=== PATIENT | female | born 1970 | race Caucasian/White ===

== ENCOUNTER → 2017-08-31 12:07 | Outpatient (CLI) | payer BC ==
[~2017-08-31 12:07] MED LIST: IBUPROFEN400 MG PO; KLONOPIN1 MG PO; SYNTHROID75 MCG PO; TYLENOL #4 W/CO1 TAB PO
== END | disposition home or self-care (01) ==
LOC: D.MRI 12:07
DX: M79.671 Pain in right foot (principal)

== ENCOUNTER → 2017-12-01 16:41 | Outpatient (CLI) | payer BC | END | disposition home or self-care (01) | LOC: D.MAMMO 10:30 | DX: Z12.31 Encounter for screening mammogram for malignant neoplasm of breast (principal) ==

== ENCOUNTER → 2017-12-22 19:05 | Outpatient (CLI) | payer BC | END | disposition home or self-care (01) | LOC: D.MAMMO 12-20 15:00 → D.US 12-20 15:30 → D.MAMMO 13:30 | DX: R92.8 Other abnormal and inconclusive findings on diagnostic imaging of breast (principal) ==

== ENCOUNTER 2018-05-12 16:31 | Emergency (ER) | payer BC ==
[~2018-05-12] VITALS: Ht 162.6 cm; Wt 80.0 kg
[2018-05-12 16:34] VITALS: BP 138/98; Ht 162.6 cm; Wt 80.0 kg
[2018-05-12] MEDS ORDERED: FUROSEMIDE20 MG PO (16:36)
[2018-05-12 17:01] LABS: HEMATOCRIT 40.8 % (36.0-48.0); HEMOGLOBIN 14.3 g/dL (12-16); LYMPHOCYTES 27.6 % (15-50); MCH 29.7 pg (26.0-34.0); MCV 84.6 fL (80.0-100.0); MEAN PLATELET VOLUME 10.6 fL (7.4-10.4); NEUTROPHILS 63.5 % (40-80); PLATELET COUNT 264 10x3/uL (130-400); RBC 4.82 10x6/uL (4.00-5.40); WBC 9.8 10x3/uL (4.8-10.8)
[2018-05-12 17:14] LABS: ALBUMIN 3.6 g/dL (3.4-5.0); ALKALINE PHOSPHATASE 63 U/L (46-116); ALT (SGPT) 23 U/L (10-68); BILIRUBIN - TOTAL 0.24 mg/dL (0.2-1.3); CALC OSMOLALITY 277 mosm/kg (275-300); CALCIUM 9.1 mg/dL (8.5-10.1); CARBON DIOXIDE 31.3 mmol/L (21.0-32.0); CHLORIDE - SERUM 100 mmol/L (98-107); CREATININE - SERUM 1.2 mg/dL (0.6-1.3); GLUCOSE 98 mg/dL (74-106); POTASSIUM - SERUM 3.9 mmol/L (3.5-5.1); PROTEIN - SERUM 8.3 g/dL (6.4-8.2); SODIUM 138 mmol/L (136-145); UREA NITROGEN 17 mg/dL (7-18); eGFR NON AFRICAN AMERICAN 51 mL/min (90-120)
[2018-05-12 17:26] LABS: TROPONIN-I < 0.017 ng/mL (0.000-0.060)
[2018-05-12] MEDS ORDERED: AUGMENTIN 875-11 TAB PO (17:59)
[2018-05-12] MEDS ORDERED: FLUTICASONE PRO16 GM NASAL (17:59)
[2018-05-12] MEDS ORDERED: MEDROL DOSE PACK4 MG PO (17:59)
== END 2018-05-12 18:34 | disposition home or self-care (01) ==
LOC: D.ER 16:31
PROVIDERS: Family Medicine
DX: J01.90 Acute sinusitis, unspecified (principal); R11.2 Nausea with vomiting, unspecified; R19.7 Diarrhea, unspecified; R09.89 Other specified symptoms and signs involving the circulatory and respiratory systems; E05.00 Thyrotoxicosis with diffuse goiter without thyrotoxic crisis or storm

== ENCOUNTER → 2018-08-01 07:41 | Outpatient (CLI) | payer BC ==
[2018-05-12 16:34] VITALS: BMI 30.2
[~2018-08-01 07:41] MED LIST changes: +AUGMENTIN 875-11 TAB PO; +FLUTICASONE PRO16 GM NASAL; +FUROSEMIDE20 MG PO; +MEDROL DOSE PACK4 MG PO
== END | disposition home or self-care (01) ==
LOC: D.NM 07-04 13:00
DX: R10.11 Right upper quadrant pain (principal)

== ENCOUNTER 2018-08-22 12:20 | Inpatient (IN) | payer BC ==
[~2018-08-22] VITALS: Ht 162.6 cm; Wt 82.6 kg
[2018-08-22 13:21] LABS: BASOPHILS 0.1 % (0-2); EOSINOPHILS 0.2 % (0-7); HEMATOCRIT 43.3 % (36.0-48.0); IMMATURE GRANULOCYTES 0.3 % (0-5); LYMPHOCYTES 6.1 % (15-50); MCH 30.2 pg (26.0-34.0); MCHC 34.6 g/dL (31.0-37.0); MCV 87.1 fL (80.0-100.0); MEAN PLATELET VOLUME 10.8 fL (7.4-10.4); MONOCYTES 6.3 % (2-11); RBC 4.97 10x6/uL (4.00-5.40); RDW 13.2 % (11.5-14.5); WBC 17.9 10x3/uL (4.8-10.8)
[2018-08-22 13:22] LABS: PLATELET COUNT 210 10x3/uL (130-400)
[2018-08-22 13:30] LABS: APTT 25.2 SECONDS (22.8-39.4); INR 1.06 (0.85-1.17); PROTIME 13.3 SECONDS (11.6-15.0)
[2018-08-22 13:34] LABS: ANION GAP 12.9 mmol/L (8-16); BILIRUBIN - TOTAL 0.6 mg/dL (0.2-1.3); CALCIUM 8.2 mg/dL (8.5-10.1); CARBON DIOXIDE 27.1 mmol/L (21.0-32.0); CREATININE - SERUM 1.2 mg/dL (0.6-1.3); PROTEIN - SERUM 7.7 g/dL (6.4-8.2)
[2018-08-22 14:00] VITALS: BP 149/94
[2018-08-22 15:35] LABS: APPEARANCE CLEAR (CLEAR); BILIRUBIN NEGATIVE (NEGATIVE); COLOR YELLOW (YELLOW); GLUCOSE NEGATIVE (NEGATIVE); KETONE LARGE mg/dL (NEGATIVE); NITRITE NEGATIVE (NEGATIVE); PROTEIN TRACE mg/dL (NEGATIVE); SPECIFIC GRAVITY 1.015 (1.005-1.020); UROBILINOGEN NORMAL (NORMAL)
[2018-08-22 15:36] LABS: EPITHELIAL CELLS 0-5 /hpf (0-5); RED CELLS - URINE >50 /hpf (0-5); WHITE CELLS - URINE 0-5 /hpf (0-5)
[2018-08-22 15:37] LABS: BACTERIA FEW /hpf (NONE SEEN); YEAST <1+ /hpf (NONE SEEN)
[2018-08-22 16:00] VITALS: BP 155/92
--- NOTE | 2018-08-22 19:20 | NUR ---
FLAGYL INFUSION COMPLETE.
--- NOTE | 2018-08-22 19:29 | NUR ---
MORPHINE SLOT SERVICE SPECIALIST INFUSION STARTED. PT RESTING ON BED. NO S/S OF ACUTE DISTRESS NOTED AT THIS TIME.
--- NOTE | 2018-08-22 22:38 | NUR ---
PT ARRIVED TO M3 ROOM 1212 WITH HOSPITAL STAFF. PT ALERT AND ORIENTED.
--- NOTE | 2018-08-23 02:31 | NUR ---
PT C/O OF PAIN IN ABD, A LEVEL OF 10, MORPHINE 2MG BOLUS GIVEN. CALL LIGHT IN REACH.
[2018-08-23 02:36] VITALS: BP 122/69; BMI 31.3
[2018-08-23 04:00] VITALS: BP 103/69
[2018-08-23 06:39] LABS: BASOPHILS 0.1 % (0-2); HEMATOCRIT 36.2 % (36.0-48.0); IMMATURE GRANULOCYTES 0.2 % (0-5); LYMPHOCYTES 11.8 % (15-50); MCH 29.3 pg (26.0-34.0); MCHC 33.1 g/dL (31.0-37.0); MCV 88.3 fL (80.0-100.0); MEAN PLATELET VOLUME 11.7 fL (7.4-10.4); NEUTROPHILS 78.9 % (40-80); PLATELET COUNT 175 10x3/uL (130-400); RDW 13.4 % (11.5-14.5); WBC 16.6 10x3/uL (4.8-10.8)
--- NOTE | 2018-08-23 07:15 | NUR ---
ROUNDING DONE WITH PATIENT HIGH SCHOOL PROFESSIONAL OUT OF MEDICATION. ON ROOM AIR. LEFT AC PIV SEEN WITH NS INFUSING AT 125 CC/HR ALONG WITH HIGH SCHOOL PROFESSIONAL MORPHINE. NEW SYRINGE ADDED. S
[2018-08-23 07:40] LABS: ALBUMIN 2.5 g/dL (3.4-5.0); ANION GAP 14.7 mmol/L (8-16); BILIRUBIN - TOTAL 0.47 mg/dL (0.2-1.3); CALCIUM 7.2 mg/dL (8.5-10.1); CREATININE - SERUM 0.9 mg/dL (0.6-1.3); POTASSIUM - SERUM 3.7 mmol/L (3.5-5.1); PROTEIN - SERUM 5.9 g/dL (6.4-8.2)
[2018-08-23 07:55] VITALS: BP 116/71
--- NOTE | 2018-08-23 10:01 | NUR ---
DR OSORIO IN TO SEE PAIIENT. HYPERACTIVE BOWEL SOUNDS TO ALL QUADS.
[2018-08-23 10:35] VITALS: Ht 162.6 cm; Wt 82.6 kg
--- NOTE | 2018-08-23 10:35 | NUR ---
URINE CULTURE SENT TO LAB ORDERED. THIS WAS REMOVED USING STERILE TECHNIQUE FROM THE [facility]UE [facility]. ZOFRAN WAS GIVEN FOR DRY HEAVING.
--- NOTE | 2018-08-23 11:41 | NUR ---
2 MG BOLUS GIVEN.
[2018-08-23 11:54] VITALS: BP 156/83
--- NOTE | 2018-08-23 12:00 | NUR ---
1135-MOTHER OF LADY AND ANOTHER FEMALE IN ROOM AT THIS TIME. PATIENT IS HAVING SOME CRAMPING DONE. PATIENT DOES NOT WANT ME TO TALK TO THE MOTHER REGARDING HER CONDITION. MOTHER STATES, "WELL I AM TAKING HER OFF MY LIST". ANGEL LUIS TO CALL AND I ASKED PATIENT IF I COULD TALK TO HIM. SHE STATES "YES". I TOLD HIM THAT THERE REALLY WASN'T ANYTHING NEW TO UPDATE ON HER CONDITION AT THIS TIME, THAT SHE WAS CRAMPING IN HER ABDOMINAL AREA, AND THEY WERE IN THE ROOM NOW FOR AN XRAY. HE ASKED THAT I CALL HIM ON ANY UPDATES.
--- NOTE | 2018-08-23 12:15 | NUR ---
PATIENT CLEANED UP FROM LIQUID STOOL IN THE BED. SENT FOR SAMPLE ORDERED.
--- NOTE | 2018-08-23 12:23 | NUR ---
VERBAL AND WRITTEN DISCHARGE INSTRCUTIONS GIVEN TO PATIENT. SALINE LOCK REMOVED WITH CATH TIP INTACT. DISCHARGED HOME VIA WHEELCHAIR.
[2018-08-23 15:40] VITALS: BP 111/65
--- NOTE | 2018-08-23 16:07 | NUR ---
REFUSES SCD'S SHE IS UP AND DOWN TO THE RESTROOM.
--- NOTE | 2018-08-23 17:28 | NUR ---
PATIENT ASSISTED TO RESTROOM TO CLEAN UP WITH BATH CLOTHS. COMPLETE BED LINEN CHANGE DONE.
--- NOTE | 2018-08-23 19:30 | NUR ---
THE PATIENT WAS TALKING TO HER HUSBAN WHEN STAFF ENTERED HER ROOM. BED IN THE LOW POSITION WITH SIDERAILS X2 AND CALL LIGHT WITHIN REACH. THE PATIENT DEMONSTRATES UNDERSTANDING OF CALL LIGHT USE VIA TEACHBACK METHOD. THE PATIENT HAS NO QUESTIONS OR CONCERNS AT THIS TIME.
[2018-08-23 19:44] VITALS: BP 122/55
--- NOTE | 2018-08-24 03:52 | NUR ---
THE PATIENT IS AWAKE, WATCHING TELEVISION. SHE HAS NO CONCERNS OR QUESTIONS AT THIS TIME.
[2018-08-24 04:00] VITALS: BP 107/60
[2018-08-24 05:41] LABS: BASOPHILS 0.2 % (0-2); EOSINOPHILS 1.7 % (0-7); HEMATOCRIT 34.6 % (36.0-48.0); HEMOGLOBIN 11.5 g/dL (12-16); IMMATURE GRANULOCYTES 0.2 % (0-5); MCHC 33.2 g/dL (31.0-37.0); MCV 87.2 fL (80.0-100.0); MEAN PLATELET VOLUME 10.8 fL (7.4-10.4); MONOCYTES 9.8 % (2-11); NEUTROPHILS 74.1 % (40-80); PLATELET COUNT 167 10x3/uL (130-400); RBC 3.97 10x6/uL (4.00-5.40); RDW 13.2 % (11.5-14.5); WBC 12.6 10x3/uL (4.8-10.8)
[2018-08-24 06:03] LABS: HCG SERUM NEGATIVE (NEGATIVE)
[2018-08-24 06:08] LABS: CALCIUM 7.5 mg/dL (8.5-10.1); CARBON DIOXIDE 24.3 mmol/L (21.0-32.0); CREATININE - SERUM 0.9 mg/dL (0.6-1.3); POTASSIUM - SERUM 3.3 mmol/L (3.5-5.1)
--- NOTE | 2018-08-24 07:53 | NUR ---
REPORT RECEIVED. PT SITTING UP IN BED WITH EYES OPEN, RR EVEN AND UNLABORED. INTRODUCED SELF TO PT, PT STATES PAIN UNDER CONTROL WITH ORDERED ANALGESIC. NO S/S OF DISTRESS NOTED. PT DENIES FURTHER NEEDS AT THIS TIME. BED IN LOW POSITION. CALL LIGHT IN REACH. WILL CTM.
[2018-08-24 07:54] VITALS: BP 123/76
[2018-08-24 11:46] VITALS: BP 110/56
--- NOTE | 2018-08-24 14:54 | NUR ---
PT SITTING UP IN BED WITH EYES OPEN, MORPHINE PROFESSOR OF BIOCHEMISTRY EXCHANGED AND PATENT TO LEFT AC. NO S/S OF DISTRESS. BED IN LOW POSITION. CALL LIGHT IN REACH. DENIES FURTHER NEEDS. WILL CTM.
[2018-08-24 15:46] VITALS: BP 118/80
--- NOTE | 2018-08-24 16:16 | NUR ---
CLEANED PT UP FROM INCONT EPISODE, PT C/O PAIN OF 9/[address] IN [address]. PT DENIES ANY OTHER NEEDS AT THIS TIME. CALL LIGHT IN REACH.
--- NOTE | 2018-08-24 16:31 | NUR ---
ADMINISTERED ORDERED BOLUS DOSE ON MORPHINE SENIOR BUSINESS DEVELOPMENT MANAGER, PT STATES PAIN OF A 9 ON A SCALE OF 0-10. THE PT STATES THE PAIN IS LOCATED IN HER LOWER ABDOMEN.
--- NOTE | 2018-08-24 19:09 | NUR ---
PT HAS HAD A SHOWER WITH ASSISTANCE, UPON EXITING SHOWER PT COMPLAINED LEFT AC IV FELT SORE THEREFORE IT WAS REMOVED. 2 ATTEMPTS WERE MADE TO RESITE IV BY TAMAR HEAD LPN, BOTH UNSUCCESSFULLY. WILL PASS ON TO CHAIN MAKER LOOM CONTROL NURSE TO RESITE IV. NO S/S OF INFILTRATION NOTED. GAUZE 2 BY 2 APPLIED TO LEFT AC. AT BEDSIDE. PT DENIES FURTHER NEEDS AT THIS TIME. CALL LIGHT IS WITHIN REACH. PT HAS BEEN INFORMED TO WHY SHE IS CURRENTLY NOT ALLOWED SOLID FOOD, STATED SHE IS ON GUT REST AND ONLY ALLOWED ICE CHIPS. PT STATES UNDERSTANDING. WILL CTM. CPOC.
[2018-08-24 20:18] VITALS: BP 122/75
--- NOTE | 2018-08-24 20:18 | NUR ---
GREETED PATIENT AND INTRODUCED MYSELF. PATIENT HAS NEW 22 GAUGE PERIPHERAL IV IN HER RIGHT AC. IV MEDICATION WAS RESTARTED. VITALS OBTAINED.
--- NOTE | 2018-08-24 20:24 | NUR ---
PATIENT COMPLAINING THAT IV IN RT AC IS BURNING. ATTEMPTED TO FLUSH AND IV IS NOT PATENT. DC IV WITH TIP INTACT. WILL OBTAIN IV ACCESS SOON POSSIBLE. PATIENT HAS HAD SEVERAL FAILED ATTEMPTS. JEANETTE.
--- NOTE | 2018-08-24 21:00 | NUR ---
PT GIVEN A BOLUS TO RIGHT AC IV. WILL CONTINUE TO MONITOR
--- NOTE | 2018-08-24 21:15 | NUR ---
FAILED ATTEMPT TO OBTAIN IV ACCESS ON RIGHT OUTER AC.
--- NOTE | 2018-08-24 21:25 | NUR ---
ER NURSE WAS ABLE TO OBTAIN IV ACCESS IN RIGHT BREAST WITH 22 GAUGE.
--- NOTE | 2018-08-25 01:11 | NUR ---
CHANGED SALES RECRUITER SYRINGE AND GAVE PATIENT A 2 MG BOLUS FOR PAIN 7/10 ABDOMEN
--- NOTE | 2018-08-25 01:20 | NUR ---
ASSISTED PATIENT TO BATHROOM, PATIENT STATED BLOOD WAS IN STOOL, THERE WAS BRIGHT RED BLOOD ON TOILET PAPER ABOUT THE SIZE OF A DIME. NO BLOOD IN STOOL NOTED, STOOLS WERE LIQUID AND A PONCE COLOR. WILL CONTINUE TO MONITOR.
--- NOTE | 2018-08-25 04:32 | NUR ---
ASSISTED PATIENT TO BATHROOM USING ONE PERSON ASSIST. PATIENT HAD SMALL LOOSE BOWEL MOVEMENT WITH NO BLOOD SEEN. PATIENT BACK TO BED AND REPOSITIONED. CALL LIGHT IN REACH. [facility].
[2018-08-25 06:05] VITALS: BP 122/86
[2018-08-25 06:27] LABS: BASOPHILS 0.3 % (0-2); EOSINOPHILS 2.5 % (0-7); HEMATOCRIT 35.6 % (36.0-48.0); IMMATURE GRANULOCYTES 0.5 % (0-5); LYMPHOCYTES 17.7 % (15-50); MCH 29.3 pg (26.0-34.0); MCHC 33.7 g/dL (31.0-37.0); MCV 86.8 fL (80.0-100.0); MEAN PLATELET VOLUME 11.3 fL (7.4-10.4); MONOCYTES 10.3 % (2-11); NEUTROPHILS 68.7 % (40-80); WBC 10.8 10x3/uL (4.8-10.8)
[2018-08-25 06:39] LABS: PLATELET COUNT 203 10x3/uL (130-400)
[2018-08-25 07:17] LABS: CALC OSMOLALITY 273 mosm/kg (275-300); CARBON DIOXIDE 23.6 mmol/L (21.0-32.0); CHLORIDE - SERUM 104 mmol/L (98-107); CREATININE - SERUM 0.8 mg/dL (0.6-1.3); GLUCOSE 83 mg/dL (74-106); POTASSIUM - SERUM 3.3 mmol/L (3.5-5.1); SODIUM 139 mmol/L (136-145); UREA NITROGEN 3 mg/dL (7-18); eGFR NON AFRICAN AMERICAN 82 mL/min (90-120)
--- NOTE | 2018-08-25 09:45 | NUR ---
PT AM MEDS ADMINISTERED. PT DENIES NEEDS. WCTM.
[2018-08-25 09:46] VITALS: BP 119/68
[2018-08-25 12:22] VITALS: BP 124/88
--- NOTE | 2018-08-25 12:30 | NUR ---
PT POTASSIUM GIVEN FOR K+3.4. SERUM ORDERED FOR 1630. WCTM.
--- NOTE | 2018-08-25 14:08 | NUR ---
Nutrition Follow Up: Chart reviewed. Pt continues with abdominal pain and diarrhea. Diet has been advanced to clear liquid. BM: 08/24/18 Wt stable Labs reviewed Meds noted including Zofran, Flagyl Rec continue advancing diet as tolerated as medically feasible. Will honor food preferences within diet restrictions. RD following.
--- NOTE | 2018-08-25 16:48 | NUR ---
WHEN DR BAUMAN WAS IN PT ROOM SHE STATED IT WAS TOO LATE TO GET STOOL SAMPLES DUE TO PT BEING ON ANTIBIOTICS. ORDERS CANCELLED AT THIS TIME.
[2018-08-25 17:27] VITALS: BP 124/78
--- NOTE | 2018-08-25 17:30 | NUR ---
POTASSIUM GIVEN FOR K+3.4. SERUM ORDERED FOR 2129.
--- NOTE | 2018-08-25 17:42 | NUR ---
PT LINDSAY CATHETER DC'D CATH TIP INTACT. PT DENIES NEEDS AT THIS TIME. WCTM.
--- NOTE | 2018-08-25 19:15 | NUR ---
PT VOIDED CLEAR, YELLOW URINE AT THIS TIME. WCTM.
--- NOTE | 2018-08-25 22:57 | NUR ---
REST QUIETLY IN BED, CALL LIGHT IN REACH.
[2018-08-26 03:48] VITALS: BP 121/70
--- NOTE | 2018-08-26 04:01 | NUR ---
PT ASLEEP. RESP EVEN AND UNLABORED, NO S/S OF DISTRESS. BEDLOW AND CALL LIGHT IN REACH. WILL CPOC
--- NOTE | 2018-08-26 04:16 | NUR ---
REST IN BED, RESP EVEN, NO DISTRESS, CALL LIGHT IN REACH.
[2018-08-26 06:23] LABS: BASOPHILS 0.3 % (0-2); HEMATOCRIT 35.7 % (36.0-48.0); HEMOGLOBIN 12.1 g/dL (12-16); IMMATURE GRANULOCYTES 0.8 % (0-5); LYMPHOCYTES 19.3 % (15-50); MCH 29.2 pg (26.0-34.0); MCHC 33.9 g/dL (31.0-37.0); MEAN PLATELET VOLUME 10.8 fL (7.4-10.4); MONOCYTES 18.2 % (2-11); NEUTROPHILS 58.4 % (40-80); PLATELET COUNT 240 10x3/uL (130-400); RBC 4.15 10x6/uL (4.00-5.40); RDW 12.9 % (11.5-14.5); WBC 8.9 10x3/uL (4.8-10.8)
[2018-08-26 06:44] LABS: ANION GAP 14.7 mmol/L (8-16); CALCIUM 8.3 mg/dL (8.5-10.1); CARBON DIOXIDE 24.1 mmol/L (21.0-32.0); POTASSIUM - SERUM 3.8 mmol/L (3.5-5.1)
[2018-08-26 08:00] VITALS: BP 127/89
--- NOTE | 2018-08-26 08:00 | NUR ---
AWAKE AND ALERT. ORIENTED X3. C/O INTENSE PAIN THIS AM. DESKTOP SUPPORT TECHNICIAN STARTED TO ASSIST WITH PAIN MANAGEMENT. LUNGS ARE CLEAR BIALTERALLY, NO COUGH NOTED. SKIN IS INTACT WITHOUT REDNESS EXCEPT 4 SMALL INSERTION SITES TO ABDOMEN WHICH ARE CLEAN AND DRY WITHOUT SIGNS OF INFECTION. IV TO RIGHT HAND IS PATENT WITHOUT REDNESS AT INSERTION SITE. DENIES OTHER NEEDS.
--- NOTE | 2018-08-26 10:00 | NUR ---
RESTING QUIETLY WITH EYES CLOSED. NO NEEDS NOTED.
[2018-08-26 11:53] VITALS: BP 129/83
--- NOTE | 2018-08-26 12:30 | NUR ---
NEYMAR COLBERT SERVED. ATE MOST OF THIS. WILL MONITOR.
[2018-08-26 16:00] VITALS: BP 109/81
--- NOTE | 2018-08-26 18:41 | NUR ---
DRANK HER BROTH FOR DINNER. AT BEDSIDE. REPORTED FEELING BETTER AFTER TALKING WTIH DR. CHAMORRO. NO CHANGES AT THIS TIME. DENIES NEEDS.
[2018-08-26 20:00] VITALS: BP 130/79
--- NOTE | 2018-08-26 20:40 | NUR ---
THE PATIENT WAS WATCHING TELEVISION WHEN STAFF ENTERED HER ROOM. BED IN LOW POSITION WITH SIDERAILS X2 AND CALL LIGHT WITHIN REACH. THE PATIENT DEMONSTRATES USE OF A CALL LIGHT VIA TEACHBACK METHOD. THE PATIENT HAS NO QUESTIONS OR CONCERNS AT THIS TIME.
[2018-08-27] VITALS: BP 114/87
--- NOTE | 2018-08-27 00:50 | NUR ---
SLEEPING MEDICATION DELIVERED. THE PATIENT HAS NO QUESTIONS OR CONCERNS AT THIS TIME.
--- NOTE | 2018-08-27 01:55 | NUR ---
THE PATIENT APPEARS TO BE SLEEPING COMFORTABLY.
[2018-08-27 04:00] VITALS: BP 115/80
--- NOTE | 2018-08-27 07:50 | NUR ---
ASSESSMENT COMPLETE. IV TO R WRIST PATENT. JAVA WEB ARCHITECT MORPHINE 1-10-10 IN USE FOR PAIN CONTROL. ZOFRAN DRIP INFUSING. LAP SITES X 4 TO ABDOMEN. COMPLAINING OF ABDOMINAL PAIN-MOSTLY RUQ AND DOWN SIDES AT TIMES. DENIES ANY NEEDS AT THIS TIME.
[2018-08-27 08:18] LABS: ANION GAP 10.9 mmol/L (8-16); CARBON DIOXIDE 25.7 mmol/L (21.0-32.0); CREATININE - SERUM 1.1 mg/dL (0.6-1.3); POTASSIUM - SERUM 3.6 mmol/L (3.5-5.1)
[2018-08-27 08:22] LABS: BASOPHILS 0.8 % (0-2); EOSINOPHILS 3.3 % (0-7); HEMATOCRIT 36.7 % (36.0-48.0); HEMOGLOBIN 12.5 g/dL (12-16); IMMATURE GRANULOCYTES 2.8 % (0-5); LYMPHOCYTES 22.7 % (15-50); MCH 29.1 pg (26.0-34.0); MCHC 34.1 g/dL (31.0-37.0); MCV 85.3 fL (80.0-100.0); MEAN PLATELET VOLUME 10.3 fL (7.4-10.4); MONOCYTES 24.3 % (2-11); NEUTROPHILS 46.1 % (40-80); PLATELET COUNT 244 10x3/uL (130-400); RDW 12.8 % (11.5-14.5)
[2018-08-27 08:24] LABS: WBC 6.1 10x3/uL (4.8-10.8)
--- NOTE | 2018-08-27 15:33 | NUR ---
AT BEDSIDE. KLONOPIN GIVEN PER PATIENT REQUEST FOR ANXIETY.
[2018-08-27 16:13] VITALS: BP 114/69
--- NOTE | 2018-08-27 18:05 | NUR ---
NO CHANGES NOTED AT THIS TIME.
[2018-08-27 19:39] VITALS: BP 114/74
--- NOTE | 2018-08-27 19:55 | NUR ---
THE PATIENT WAS WATCHING TELEVISION WHEN STAFF ENTERED HER ROOM. BED IN LOW POSITION WITH CALL LIGHT WITHIN REACH AND SIDERAILS X2. THE PATIENT WAS EDUCATED UN UPCOMING PAIN MEDICATION CHANGES AND DEMONSTRATED UNDERSTANDING VIA TEACHBACK METHOD. THE PATIENT APPEARS COMFORTABLE WITH NO QUESTIONS OR CONCERNS AT THIS TIME.
[2018-08-27 23:31] VITALS: BP 106/67
--- NOTE | 2018-08-28 02:50 | NUR ---
THE PATIENT IS AWAKE AND WATCHING TELEVISION. SHE HAS NO QUESTIONS OR CONCERNS AT THIS TIME.
[2018-08-28 04:24] VITALS: BP 109/72
[2018-08-28 06:29] LABS: BASOPHILS 0.7 % (0-2); EOSINOPHILS 2.9 % (0-7); HEMATOCRIT 35.1 % (36.0-48.0); HEMOGLOBIN 11.7 g/dL (12-16); IMMATURE GRANULOCYTES 5.6 % (0-5); LYMPHOCYTES 19.8 % (15-50); MCH 28.8 pg (26.0-34.0); MCHC 33.3 g/dL (31.0-37.0); MCV 86.5 fL (80.0-100.0); MEAN PLATELET VOLUME 10.2 fL (7.4-10.4); MONOCYTES 27.7 % (2-11); NEUTROPHILS 43.3 % (40-80); PLATELET COUNT 271 10x3/uL (130-400); RBC 4.06 10x6/uL (4.00-5.40); RDW 12.8 % (11.5-14.5); WBC 5.6 10x3/uL (4.8-10.8)
[2018-08-28 06:51] LABS: ANION GAP 12.4 mmol/L (8-16); CARBON DIOXIDE 26.5 mmol/L (21.0-32.0); CREATININE - SERUM 1.1 mg/dL (0.6-1.3); POTASSIUM - SERUM 3.9 mmol/L (3.5-5.1)
--- NOTE | 2018-08-28 08:15 | NUR ---
ASSESSMENT COMPLETE. IV TO R HAND PATENT. NPO FOR FLEX SIG THIS AM. LAP SITES X 3 TO ABDOMEN. DENIES ANY NEEDS AT THIS TIME.
[2018-08-28 08:50] LABS: HCG SERUM NEGATIVE (NEGATIVE)
--- NOTE | 2018-08-28 09:30 | NUR ---
OFF FLOOR TO GI LAB VIA BED.
--- NOTE | 2018-08-28 10:28 | NUR ---
RETURNED TO ROOM FROM GI LAB.
[2018-08-28] MEDS ORDERED: LEVOFLOXACIN500 MG PO (12:04)
[2018-08-28] MEDS ORDERED: FLAGYL500 MG PO (12:04)
[2018-08-28] MEDS ORDERED: ZOFRAN4 MG PO (12:12)
--- NOTE | 2018-08-28 12:50 | NUR ---
IV REMOVED. CATHETER TIP INTACT. DISCHARGE TEACHING GIVEN TO PATIENT. VOICED UNDERSTANDING.
--- NOTE | 2018-08-28 13:15 | NUR ---
DC'D HOME WITH . AMBULATED TO VEHICLE WITH BELONGINGS.
== END 2018-08-28 13:15 | disposition home or self-care (01) | DRG 387 ==
LOC: D.ER 12:20 → D.M3 17:11 → D.EDHOLD 17:11 → D.M3 20:40
PROVIDERS: Anesthesiology; Family Medicine; Internal Medicine Gastroenterology; ADMIT Internal Medicine Nephrology
PROC: 0DBL8ZX Excision of Transverse Colon, Via Natural or Artificial Opening Endoscopic, Diagnostic (ICD-10-PCS; 2018-08-28)
PROC: 0DBM8ZX Excision of Descending Colon, Via Natural or Artificial Opening Endoscopic, Diagnostic (ICD-10-PCS; principal; 2018-08-28 09:30)
DX: K51.911 Ulcerative colitis, unspecified with rectal bleeding (principal); K59.00 Constipation, unspecified; E05.00 Thyrotoxicosis with diffuse goiter without thyrotoxic crisis or storm; Z72.89 Other problems related to lifestyle

== ENCOUNTER 2019-03-16 16:53 | Emergency (ER) | payer BC ==
[~2019-03-16] VITALS: Ht 162.6 cm; Wt 80.0 kg
[~2019-03-16 16:53] MED LIST changes: +FLAGYL500 MG PO; +LEVOFLOXACIN500 MG PO; +ZOFRAN4 MG PO
[2019-03-16 17:08] VITALS: Ht 162.6 cm; Wt 80.0 kg
[2019-03-16] MEDS ORDERED: ADIPEX-P37.5 M1 PO (17:11)
[2019-03-16 17:36] LABS: BASOPHILS 0.4 % (0-2); EOSINOPHILS 0.7 % (0-7); HEMOGLOBIN 14.8 g/dL (12-16); IMMATURE GRANULOCYTES 0.5 % (0-5); LYMPHOCYTES 27.9 % (15-50); MCHC 35.2 g/dL (31.0-37.0); MCV 85.2 fL (80.0-100.0); MEAN PLATELET VOLUME 10.5 fL (7.4-10.4); MONOCYTES 9.3 % (2-11); NEUTROPHILS 61.2 % (40-80); PLATELET COUNT 240 10x3/uL (130-400); RBC 4.93 10x6/uL (4.00-5.40); WBC 10.6 10x3/uL (4.8-10.8)
[2019-03-16 17:51] LABS: ALBUMIN 3.8 g/dL (3.4-5.0); ANION GAP 13.6 mmol/L (8-16); BILIRUBIN - TOTAL 0.55 mg/dL (0.2-1.3); CALCIUM 9.4 mg/dL (8.5-10.1); CREATININE - SERUM 1.3 mg/dL (0.6-1.3); POTASSIUM - SERUM 3.6 mmol/L (3.5-5.1); PROTEIN - SERUM 8.4 g/dL (6.4-8.2)
[2019-03-16 18:00] LABS: T4 THYROXIN - FREE 1.45 ng/dL (0.76-1.46); THYROID STIMULATING HORMONE 2.46 uIU/mL (0.36-3.74)
[2019-03-16 18:18] LABS: APPEARANCE CLEAR (CLEAR); BILIRUBIN NEGATIVE (NEGATIVE); COLOR STRAW (YELLOW); GLUCOSE NEGATIVE (NEGATIVE); KETONE NEGATIVE (NEGATIVE); NITRITE NEGATIVE (NEGATIVE); PROTEIN NEGATIVE (NEGATIVE); SPECIFIC GRAVITY 1.005 (1.005-1.020); UROBILINOGEN NORMAL (NORMAL)
[2019-03-16 18:20] LABS: BACTERIA FEW /hpf (NONE SEEN); EPITHELIAL CELLS 0-5 /hpf (0-5); RED CELLS - URINE 0-5 /hpf (0-5); WHITE CELLS - URINE OCC /hpf (0-5)
[2019-03-16 20:13] VITALS: BP 130/76
== END 2019-03-16 20:13 | disposition home or self-care (01) ==
LOC: D.ER 16:53
PROVIDERS: Family Medicine
DX: A08.4 Viral intestinal infection, unspecified (principal); R42 Dizziness and giddiness; E05.00 Thyrotoxicosis with diffuse goiter without thyrotoxic crisis or storm

== ENCOUNTER 2019-07-28 08:00 | Day surgery (SDC) | payer BC ==
[2019-07-26 09:13] LABS: BASOPHILS 0.3 % (0-2); EOSINOPHILS 1.1 % (0-7); HEMATOCRIT 41.5 % (36.0-48.0); HEMOGLOBIN 14.4 g/dL (12-16); IMMATURE GRANULOCYTES 0.6 % (0-5); LYMPHOCYTES 17.1 % (15-50); MCH 30.7 pg (26.0-34.0); MCHC 34.7 g/dL (31.0-37.0); MCV 88.5 fL (80.0-100.0); MEAN PLATELET VOLUME 10.1 fL (7.4-10.4); MONOCYTES 8.9 % (2-11); PLATELET COUNT 271 10x3/uL (130-400); RBC 4.69 10x6/uL (4.00-5.40); RDW 12.6 % (11.5-14.5); WBC 11.6 10x3/uL (4.8-10.8)
[2019-07-26 09:15] LABS: ANION GAP 9.3 mmol/L (8-16); CALCIUM 8.6 mg/dL (8.5-10.1); CREATININE - SERUM 1.1 mg/dL (0.6-1.3); POTASSIUM - SERUM 4.3 mmol/L (3.5-5.1)
[~2019-07-28] VITALS: Ht 162.6 cm; Wt 82.3 kg
[2019-07-28] VITALS (8 sets, daily range): BP systolic 121–145; BP diastolic 77–103; BMI 31.1
[~2019-07-28 08:00] MED LIST changes: +ADIPEX-P37.5 M1 PO; +AMBIEN5 MG
[2019-07-28 09:16] LABS: HCG URINE NEGATIVE (NEGATIVE)
--- NOTE | 2019-07-28 16:15 | NUR ---
REC'D PT AA&O X 4. CURRENTLY DENIES PAIN AT PRESENT.
--- NOTE | 2019-07-28 16:30 | NUR ---
RECEIVED PATIENT AWAKE, ALERT AND ORIENTED FROM Angela LAGUNA RN. IV PLACED ON PUMP AT 125CC/HOUR. IV IN RIGHT FOREARM WITHOUT REDNESS OR PAIN. LINDSAY DRAINING TO GRAVITY; 700CC CLEAR GREEN/BLUE URINE EMPTIED FROM CATHETER BAG. LUNGS CLEAR, HEART RATE REGULAR. 3 LAPROSCOPIC INCISIONS NOTED ON ABDOMEN: 1 @ UMBILICUS, 1 @ LEFT ABDOMEN, AND 1 @ RIGHT ABDOMEN. ALL INCISIONS INTACT WITHOUT DRAINAGE. PATIENT ORIENTED TO ROOM AND PLAN FOR CARE THIS EVENING. NO COMPLAINTS OF PAIN AT THIS TIME. SCD'S APPLIED AND CYCLING.
--- NOTE | 2019-07-28 16:36 | NUR ---
DR THACKER NOTIFIED OF PT ALLERGY TO DILAUDID. NEW T.O. RECEIVED.
--- NOTE | 2019-07-28 17:45 | NUR ---
C/O PAIN. STATES PAIN LEVEL IS AN 8.
--- NOTE | 2019-07-28 17:55 | NUR ---
DEMEROL 100MG GIVEN IVP OVER 2 MINUTES. CONTINUE TO MONITOR.
--- NOTE | 2019-07-28 18:15 | NUR ---
IN ROOM TO CHECK ON PATIENT. SLEEPING. RESPIRATIONS 12, OXYGEN SATURATION 88%. PATIENT ROUSED. HAD PATIENT TAKE DEEP BREATHS. PATIENT AWAKE AND ALERT. USED INCENTIVE SPIROMETER SEVERAL TIMES. OXYGEN SATURATION 99%. CALL LIGHT WITHIN REACH. SIDE-RAILS x2. STATES PAIN IS MUCH BETTER.
--- NOTE | 2019-07-28 18:30 | NUR ---
IN TO SEE PATIENT.
--- NOTE | 2019-07-28 18:45 | NUR ---
IN ROOM TO CHECK ON PATIENT. AWAKE, ALERT, WATCHING TV, TALKING ON PHONE. NO COMPLAINTS AT THIS TIME.
--- NOTE | 2019-07-28 19:55 | NUR ---
sandwich tray given at this time. boone velasco rn
--- NOTE | 2019-07-28 20:30 | NUR ---
PT REC'D SNACKS AT THIS TIME. Huong HERRING RN
--- NOTE | 2019-07-28 21:12 | NUR ---
PT MEDICATED FOR PAIN LEVEL OF 9. WILL CONTINUE TO MONITOR. Huong HERRING RN
--- NOTE | 2019-07-28 22:00 | NUR ---
200ML OF CLEAR YELLOW URINE NOTED AT THIS TIME. LINDSAY CATH DISCONTINUED AND PATIENT UP TO BATHROOM. PERICARE PERFORMED. PT UNABLE TO VOID. PT BACK TO BED. NO DISTRESS NOTED. Huong HERRING RN
--- NOTE | 2019-07-28 22:21 | NUR ---
PT MEDICATED FOR PAIN. WILL CONTINUE TO MONITOR. Huong HERRING RN
--- NOTE | 2019-07-28 23:09 | NUR ---
PT REPORTS THAT HER PAIN IS BETTER SINCE PAIN MEDICATION. WILL CONTINUE TO MONITOR. Huong HERRING RN
--- NOTE | 2019-07-29 00:27 | NUR ---
PT RESTING AT THIS TIME. DID NOT AWAKEN. RESPS EVEN AND UNLABORED. Huong HERRING RN
[2019-07-29 01:08] VITALS: BP 112/68
--- NOTE | 2019-07-29 01:08 | NUR ---
VSS. PT UP TO BATHROOM TO ATTEMPT TO VOID. PT VOIDED APPROXIMATELY 75 ML. WILL CONTINUE TO MONITOR. Huong HERRING RN
--- NOTE | 2019-07-29 02:35 | NUR ---
UP TO BR. VOIDED APPROXIMATELY 50-75 MLS IN HAT WITH SMALL TO MODERATE AMT NOTED IN TOILET. REPORTS THAT SHE TRIED TO SCOOT FORWARD TO GET IT IN HAT BUT COULDN'T GET FLOW TO STOP. LIGHT BLUE TINGED URINE NOTED. PERIPAD CHANGED WITH SCANT AMT DRIED BLOOD NOTED ON DISCARDED PERIPAD. LINENS AND GOWN CHANGED. C/O ABD ACHING AND SORENESS 04/18. TORADOL GIVEN TO LT FA PIV AND 2 TABS PERCOCET GIVEN PER ORDER. NO S/S OF INFILTRATION NOTED TO PIV SITE. SCD'S ON BLE. BED IN LOW POSITION WITH SRUP X2. CALL LIGHT AND PHONE WITHIN REACH. WILL CONTINUE TO MONITOR.
--- NOTE | 2019-07-29 03:09 | NUR ---
PAIN REASSESSMENT COMPLETE, RESTING IN SEMI-FOWLERS POSITION WITH EYES CLOSED, RESP REGULAR AND UNLABORED, NO S/S OF DISTRESS NOTED. WILL CONTINUE TO MONITOR.
[2019-07-29 05:29] VITALS: BP 97/62
--- NOTE | 2019-07-29 05:29 | NUR ---
VSS. PT RESTING UPON ENTERING ROOM. RATES PAIN AT 6-7. VOIDED 200 ML. WILL CONTINE TO MONITOR VOIDS. NO ACUTE DISTRESS NOTED. Huong HERRING RN
--- NOTE | 2019-07-29 06:34 | NUR ---
PT REC'D IN BED AT THIS TIME. MEDICATED FOR PAIN OF 8. VOIDED 200 ML AT THIS TIME. Huong HERRING RN
--- NOTE | 2019-07-29 07:10 | NUR ---
PT LYING ON LEFT LATERAL POSITION ON ROUNDS, EYES CLOSED, RESP EVEN AND UNLABORED, REVIEWED PLAN OF CARE TODAY, STATES UNDERSTANDING. WILL COMPLETE AM ASSESSMENT AFTER PT WAKES FOR BREAKFAST. WILL MONITOR. CALL LIGHT IN EASY REACH.
--- NOTE | 2019-07-29 07:58 | NUR ---
DR THACKER TO PT ROOM ON ROUNDS.
[2019-07-29 08:10] VITALS: BP 119/77; Ht 162.6 cm; Wt 82.3 kg
--- NOTE | 2019-07-29 08:10 | NUR ---
AM ASSESSMENT COMPLETED ON "ADMIT ASSESSMENT FORM" PER REQUEST OF BIOLOGY PROFESSOR. ALSO COMPLETED "ADMIT" SUICIDE SCREENING AT THIS TIME. PT RESP EVEN AND UNLABORED, PT STATES HAS SINUSITIS AND LARYNGITIS; HOARSE VOICE, 2+ LEFT-SIDED TONSILLAR SWELLING, OROPHARYNGEAL ERYTHEMA NO EXUDATE NOTED. LEFT SIDED ANTERIOR CERVICAL ADENOPATHY. STATES DOCTOR AWARE AND HAS PRESCRIBED HER PREDNISONE PACK SHE BEGAN TAKING DAY BEFORE YESTERDAY. RESP EVEN AND UNLABORED, LUNGS CTAB, HEART RRR, ABD SOFT AND MILDLY TENDER TO LIGHT TOUCH, INCISION SITES X3 CDI WITH DERMABOND, NO ERYTHEMA, EDEMA, OR DRAINAGE NOTED FROM SITES. BOWEL SOUNDS PRESENT X4 QUADRANTS, VOIDING WITHOUT DIFFICULTY, REPORTS FLATUS, NIX FREELY, NEGATIVE BRAYAN'S SIGN B LE. CALL LIGHT IN EASY REACH. WILL MONITOR.
--- NOTE | 2019-07-29 08:30 | NUR ---
PT COMPLAINT OF ABDOMINAL PAIN/CRAMPING, REQUESTS PRN TORADOL PER IV AND SAME PROVIDED. ALSO PROVIDED ICE PACK OVERLAY TO LOW ABDOMEN AND CUP OF COFFEE PER PT REQUEST. NO OTHER NEEDS VOICED AT THIS TIME. WILL MONITOR.
[2019-07-29] MEDS ORDERED: NEURONTIN 300300 MG PO (09:44)
[2019-07-29] MEDS ORDERED: PERCOCET 7.5/321 TAB PO (09:45)
[2019-07-29] MEDS ORDERED: MOBIC7.5 MG PO (09:46)
--- NOTE | 2019-07-29 10:06 | NUR ---
PT C/O PAIN RATED 8 OUT OF 10 ON NUMERIC PAIN SCALE, TWO PERCOCET PO GIVEN WITH SIPS WATER. NAD NOTED.
--- NOTE | 2019-07-29 10:09 | NUR ---
REVIEWED DISCHARGE INSTRUCTIONS WITH PT AND PT SPOUSE, PRESCRIPTIONS FOR MOBIC, PERCOCET 7.5, AND NEURONTIN 300MG GIVEN TO PT, HANDOUTS PROVIDED ON POST OPERATIVE CARE AND MEDICATIONS. STATES UNDERSTANDING OF ALL INFORMATION PROVIDED, SALINE LOCK TO RIGHT FOREARM DISCONTINUED, CATHETER TIP INTACT, PRESSURE DRESSING APPLIED AND SECURED WITH CLEAR SURGICAL TAPE. TOLERATES PROCEDURE WELL. LEMON CHUATHBALUK SODA PROVIDED WITH CUP OF ICE, ICE PACK OVERLAY REFRESHED AND TO TP UPON REQUEST. NO OTHER NEEDS VOICED AT THIS TIME, PT OOB TO GET DRESSED.
--- NOTE | 2019-07-29 10:24 | NUR ---
DISCHARGED TO HOME VIA WHEELCHAIR, PERSONAL BELONGINGS, AND ACCOMPANIED BY SPOUSE TO PRIVATE AUTO. NAD NOTED.
--- NOTE | 2019-08-03 09:07 | OP ---
PATIENT NAME: THEODORA SOTO MEDICAL RECORD: [id number] :74 LOCATION:[facility] ADMISSION DATE: SURGEON: KELBY THACKER MD DATE OF OPERATION: 07/28/2019 PREOPERATIVE DIAGNOSIS: Uterine prolapse. POSTOPERATIVE DIAGNOSIS: Uterine prolapse. PROCEDURES: 1. Diagnostic laparoscopy. 2. Total laparoscopic hysterectomy. 3. Bilateral salpingectomy. 4. Uterosacral vault suspension. PRIMARY SURGEON: Kelby Thacker MD ENVIRONMENTAL FIELD TEAM MEMBER: Trino. EXECUTIVE RECEPTIONIST: SUJATA Cardoso. ANESTHESIOLOGIST: Trevin Finn MD ANESTHESIA: General. FINDINGS: Uterus prolapses to the introitus. The vaginal mucosa is unremarkable. The ovaries, tubes and what was seen of the abdominal anatomy was also unremarkable. SPECIMEN REMOVED: Uterus with cervix and bilateral tubes. SPECIMEN DISPOSITION: All specimens to pathology. ESTIMATED BLOOD LOSS: Less than or equal to 100 cc. FLUIDS: 1900 cc of lactated Ringer's. URINE OUTPUT: 500 cc of clear urine. COMPLICATIONS: None. DRAINS: Kimble to gravity. INDICATIONS: The patient is a 48-year-old female with symptomatic uterine prolapse. The patient on evaluation has a level 1 defect and was consented for total laparoscopic hysterectomy and laparoscopic uterosacral vault suspension. DESCRIPTION OF PROCEDURE: After informed consent was assured, the patient was taken to the operating room where anesthetic was obtained. The patient was placed in Yellofin stirrups and prepped and draped. A uterine manipulator was placed and attention was directed to the abdomen. Incision was made at the umbilicus to accommodate a 5-mm trocar, which was inserted without difficulty and pneumoperitoneum developed. Accessory ports are now placed in the right and left lower quadrants. In the right lower quadrant an 11-mm port was placed in the left lower quadrant and a 5-mm port was placed. Starting on the right side, OPERATIVE REPORT [id number] THEODORA SOTO the right tube was elevated and its attachments to the adnexa were compressed, coagulated, and with a Thunderbeat coagulation cutter. The dissection was carried out over the utero-ovarian and round ligaments. Anterior leaf of the broad ligament was opened and carried down to the level of the bladder. The bladder flap was developed to the midline. The posterior tissues were dissected free of the vascular bundle of the right side, which is now compressed and coagulated. Attention was now directed to the left side where the left tube is mobilized in similar fashion. The dissection again was carried out over the uteroovarian and round ligaments. The anterior leaf of the broad ligament was opened and the bladder flap now fully developed. Posterior tissues are dissected free and then the vessels compressed, coagulated, and . Attention was directed back anteriorly and using a laparoscopic peanut, the further blunt dissection occurred across the vaginal tissue. At this point, the Thunderbeat coagulation cutter was used to enter the vaginal vault. Above the manipulator cup. The dissection was carried out from 10-12 and then from 10 until 6 o'clock position. The dissection was picked up again from the right side beginning at the 12 o'clock position and concluding at the 6. The uterus was pulled into the vagina and the pneumoperitoneum was maintained. Now using an EndoStitch, the left uterosacral ligament was transfixed approximately 2 cm above the cuff. This stitch is now taken through the posterior aspect of the vaginal cuff and through the right uterosacral ligament. This complex is now tied creating a bridge of tissue above the level of the cuff. The cuff was now closed with interrupted stitches, incorporating it into the ligament complex and it has been previously formed with permanent suture. After after closure of the cuff with interrupted stitches the pelvis was irrigated, irrigant removed and the cuff inspected. The cuff appeared hemostatic. Then, the accessory ports were now removed under direct visualization as the pneumoperitoneum was released. The primary port is now removed. All sites closed with subcuticular stitch. Attention was now directed to the pelvis where the uterus was removed and a cystoscopy was now performed with a 70-degree scope. The patient has been given methylene blue and both ureteral orifices are visualized with efflux of urine. The bladder mucosa appears intact and is unremarkable. The fluid was now drained. The patient has a Kimble catheter started and is transferred to the PACU in stable condition. Sponge, lap, and needle count has been times 2. TRANSINT:[id number] Voice Confirmation ID: [id number] DOCUMENT ID: [id number] KELBY THACKER MD at 0907 CC: [id number] DICTATION DATE: 07/28/191812 THIRD COOK: 07/29/19 0028 [facility] 07/29/19 [facility] [address] [place] [address]
== END 2019-07-29 10:24 | disposition home or self-care (01) ==
LOC: D.OPS 08:00 → D.PAN 11:30 → D.OPS 12:00 → D.LD 15:59 → D.OPS 07-29 10:24
PROVIDERS: ATTEND Obstetrics & Gynecology
DX: N81.4 Uterovaginal prolapse, unspecified (principal); R10.2 Pelvic and perineal pain